=== PATIENT | male | born 1990 | race Hispanic/Latino ===

== ENCOUNTER 2017-06-21 03:36 | Emergency (ER) | payer SELFPAY ==
[~2017-06-21] VITALS: Ht 167.6 cm; Wt 136.1 kg
[~2017-06-21 03:36] MED LIST: BACTRIM DS TAB1 EACH PO; IBUPROFEN200 M1 PO
[2017-06-21] MEDS ORDERED: ROBITUSSIN COU118 ML PO (03:45)
[2017-06-21] MEDS ORDERED: VITAMIN C1000 MG PO (03:46)
== END 2017-06-21 04:09 | disposition home or self-care (01) ==
LOC: ED 03:36
DX: J06.9 Acute upper respiratory infection, unspecified (principal); R03.0 Elevated blood-pressure reading, without diagnosis of hypertension; Z87.891 Personal history of nicotine dependence
CPT/HCPCS: 99282